=== PATIENT | male | born 1990 | race Caucasian/White ===

== ENCOUNTER 2021-02-24 18:22 | Emergency (ER) | payer SELFPAY ==
[~2021-02-24] VITALS: Ht 167.6 cm; Wt 72.6 kg
[2021-02-24 18:26] VITALS: BP 141/84
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
[2021-02-24] MEDS ORDERED: IBUP-1955 PO (22:03)
== END 2021-02-24 22:15 | disposition home or self-care (01) ==
LOC: ER 18:46
DX: S39.012A Strain of muscle, fascia and tendon of lower back, initial encounter (principal); S60.222A Contusion of left hand, initial encounter; S89.82XA Other specified injuries of left lower leg, initial encounter; S49.82XA Other specified injuries of left shoulder and upper arm, initial encounter; V49.49XA Driver injured in collision with other motor vehicles in traffic accident, initial encounter; Y93.89 Activity, other specified; Y92.488 Other paved roadways as the place of occurrence of the external cause; Y99.8 Other external cause status
CPT/HCPCS: 72110-TC; 73030-TC; 73130-TC; 73564-TC